=== PATIENT | female | born 1970 | race Two or more races ===

== ENCOUNTER 2016-12-18 13:09 | Emergency (ER) | payer OTHER ==
[2016-12-18] MEDS ORDERED: RX INFO: IV CONTRAST WAS GIVEN 1 EACH MISC MISCELLANE PRN (13:36)
[2016-12-18] MEDS ORDERED: KETOROLAC 30 MG/ML 1 ML VIAL IVP STA (13:37)
[2016-12-18] MEDS ORDERED: MORPHINE SULFATE 4 MG/ML SYRINGE IV ONE (13:37)
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
[2016-12-18 14:00] LABS: Basophils # (A) 0.1 k/uL (0-0.2); Basophils % (A) 1 %; CH 32.2; CHCM 33.5; Eosinophils # (A) 0.2 k/uL (0-0.7); Eosinophils % (A) 2 %; HCT 46.7 % (34.0-46.0); HDW 2.08; HGB 15.1 gm/dL (11.4-16.0); Luc # (Auto) 0.17; Luc % (Auto) 2; Lymphocytes # (A) 1.9 k/uL (1.0-4.8); Lymphocytes % (A) 24 %; MCH 31.1 pg (25.0-35.0); MCHC 32.3 g/dL (31.0-37.0); MCV 96.3 fL (80.0-100.0); Mean Platelet Volume 8.6; Monocytes # (A) 0.6 k/uL (0-1.0); Monocytes % (A) 7 %; Neutrophils # (A) 5.3 k/uL (1.3-7.7); Neutrophils % (A) 65 %; RBC 4.84 m/uL (3.80-5.40); RDW 13.8 % (11.5-15.5); WBC 8.3 k/uL (3.8-10.6); WBC (Perox) 8.03
[2016-12-18 14:11] LABS: Anion Gap 6 mmol/L; Blood Urea Nitrogen 10 mg/dL (7-17); Calcium 9.1 mg/dL (8.4-10.2); Carbon Dioxide 28 mmol/L (22-30); Chloride 105 mmol/L (98-107); Glucose 94 mg/dL (74-99); Non-African American GFR(MDRD) >60 (>60 ml/min/1.73 sqM); Potassium 3.9 mmol/L (3.5-5.1); Sodium 139 mmol/L (137-145)
--- NOTE | 2016-12-18 15:08 | CT ---
CT CHEST FOR PULMONARY EMBOLISM. EXAMINATION TYPE: CT chest angio for PE DATE OF EXAM: 12/18/2016 INDICATION: Patient complains of RUL chest pain. CT DLP: 526 mGycm, Automated exposure control for dose reduction was used. CONTRAST: Patient injected with 100 mL of Omnipaque 350. COMPARISON: NONE TECHNIQUE: CT of the chest is performed on a spiral scan at 2 mm thick sections. Study is performed with intravenous contrast timed for evaluation for pulmonary embolism. This will limit additional po rtions of the evaluation. 3-D MIP images reconstructed by the technologist are reviewed on the compu ter in the coronal and sagittal planes. FINDINGS: No persistent filling defects are evident to suggest an acute pulmonary embolism. No mediastinal or hilar adenopathy enlarged by CT criteria is evident. The ascending aorta diameter at the level of the main pulmonary artery is 3.1 cm. The main pulmonary artery diameter at the bifur cation is 2.5 cm. Some streak opacities in the posterior dependent lung bases likely on the basis of mild streak atelec tasis. Limited CT section through the upper abdomen are unremarkable. IMPRESSIONS: 1. No acute pulmonary embolism. 2. Mild streak atelectasis posterior dependent lung bases
[2016-12-18 16:16] VITALS: BP 162/90; PULSE 66; RESP 16; TEMP 98.3
== END 2016-12-18 16:14 | disposition home or self-care (01) ==
LOC: EC 13:09
DX: J98.11 Atelectasis (principal); R07.89 Other chest pain; J44.9 Chronic obstructive pulmonary disease, unspecified; S00.31XA Abrasion of nose, initial encounter; S60.511A Abrasion of right hand, initial encounter; F17.200 Nicotine dependence, unspecified, uncomplicated; Z79.899 Other long term (current) drug therapy; V18.9XXD Unspecified pedal cyclist injured in noncollision transport accident in traffic accident, subsequent encounter
CPT/HCPCS: 36415; 93005; 80048; 85025; 71275; 99285; 96374; 96375; J2270; Q9967; J1885

== ENCOUNTER 2019-04-25 09:17 | Observation (INO) | payer OTHER ==
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
[2019-04-25 10:05] LABS: Basophils % (A) 1 %; Eosinophils # (A) 0.2 k/uL (0-0.7); Eosinophils % (A) 3 %; HCT 45.9 % (34.0-46.0); HGB 15.2 gm/dL (11.4-16.0); Lymphocytes # (A) 1.5 k/uL (1.0-4.8); Lymphocytes % (A) 29 %; MCH 31.3 pg (25.0-35.0); MCHC 33.2 g/dL (31.0-37.0); Mean Platelet Volume 8.5; Monocytes # (A) 0.3 k/uL (0-1.0); Monocytes % (A) 5 %; Neutrophils % (A) 60 %; Platelet Count 179 k/uL (150-450); RBC 4.88 m/uL (3.80-5.40); RDW 12.6 % (11.5-15.5)
[2019-04-25 10:14] LABS: African American GFR (CKD) >90 (>60 ml/min/1.73 sqM); Anion Gap 12 mmol/L; Blood Urea Nitrogen 9 mg/dL (7-17); Calcium 9.3 mg/dL (8.4-10.2); Carbon Dioxide 23 mmol/L (22-30); Chloride 104 mmol/L (98-107); Glucose 112 mg/dL (74-99); INR 0.9 (<1.2); Non-African American GFR(CKD) >90 (>60 ml/min/1.73 sqM); Partial Thromboplastin Time 24.4 sec (22.0-30.0); Potassium 3.7 mmol/L (3.5-5.1); Prothrombin Time 9.8 sec (9.0-12.0); Sodium 139 mmol/L (137-145)
--- NOTE | 2019-04-25 10:29 | XR ---
EXAMINATION TYPE: XR chest 2V DATE OF EXAM: 04/25/2019 COMPARISON: None INDICATION: Cough short of breath chest pain TECHNIQUE: Frontal and lateral views of the chest are obtained. FINDINGS: The heart size is normal. The pulmonary vasculature is normal. The lungs are clear. Nipple shadows appear to be present bilaterally. IMPRESSION: 1. No acute pulmonary process.
[2019-04-25] MEDS ORDERED: ASPIRIN 81 MG PO STA (12:31)
[2019-04-25] MEDS ORDERED: NITROGLYCERIN SL TABS 0.4 MG TAB SUBLINGUAL PRN (12:32)
[2019-04-25] MEDS ORDERED: LABETALOL 5 MG/ML VIAL MDV IVP STA (14:17)
[2019-04-26 03:57] LABS: Cholesterol 203 mg/dL (<200); Triglycerides 183 mg/dL (<150)
[2019-04-26 04:04] LABS: LDL Cholesterol,Calculated 53 mg/dL (0-99)
[2019-04-26 04:07] LABS: HDL Cholesterol 113 mg/dL (40-60)
[2019-04-26 07:04] VITALS: RESP 18
[2019-04-26] MEDS ORDERED: ASPIRIN 325 MG TAB PO SCH (09:00)
[2019-04-26] MEDS ORDERED: amLODIPine 5 MG TAB PO SCH (10:15)
[2019-04-26 12:00] VITALS: BP 153/101; PULSE 85; TEMP 97.6
[2019-04-26] MEDS ORDERED: predniSONE 20 MG TAB PO STA (13:24)
--- NOTE | 2019-04-26 13:36 | ECHOF ---
Referral Reason: MEASUREMENTS -------- HEIGHT: 165.1 cm WEIGHT: 63.5 kg BP: IVSd: 1.2 cm (0.6 - 1.1) LVIDd: 4.3 cm (3.9 - 5.3) LVPWd: 1.5 cm (0.6 - 1.1) IVSs: 1.7 cm LVIDs: 2.8 cm LVPWs: 1.9 cm LAESV Index (A-L): 20.63 ml/m Ao Diam: 2.8 cm (2.0 - 3.7) AV Cusp: 2.0 cm (1.5 - 2.6) LA Diam: 2.6 cm (2.7 - 3.8) MV EXCURSION: 20.174 mm (> 18.000) MV EF SLOPE: 131 mm/s (70 - 150) EPSS: 1.5 cm MV E Alfredo: 0.66 m/s MV DecT: 183 ms MV A Alfredo: 0.65 m/s MV E/A Ratio: 1.02 AR PHT: 275 ms RAP: 5.00 mmHg RVSP: 22.48 mmHg FINDINGS -------- Sinus rhythm. This was a technically good study. The left ventricular size is normal. There is mild concentric left ventricular hypertrophy. Overa ll left ventricular systolic function is normal with, an EF between 55 - 60 %. The diastolic fillin g pattern is normal for the age of the patient 9.95. The right ventricle is normal in size. The left atrial size is normal. The right atrial size is normal. The aortic valve is trileaflet and appears structurally normal. The mitral valve is normal. There is trace mitral regurgitation. The tricuspid valve appears structurally normal. Trace tricuspid regurgitation present. Right last tricular systolic pressure is normal at < 35 mmHg. There is no pulmonic regurgitation present. The aortic root size is normal. Normal inferior vena cava with normal inspiratory collapse consistent with estimated right atrial pre ssure of 5 mmHg. There is no pericardial effusion. CONCLUSIONS -------- 1. Sinus rhythm. 2. This was a technically good study. 3. The left ventricular size is normal. 4. There is mild concentric left ventricular hypertrophy. 5. Overall left ventricular systolic function is normal with, an EF between 55 - 60 %. 6. The diastolic filling pattern is normal for the age of the patient 9.95 7. The right ventricle is normal in size. 8. The left atrial size is normal. 9. The right atrial size is normal. 10. The aortic valve is trileaflet and appears structurally normal. 11. The mitral valve is normal. 12. There is trace mitral regurgitation. 13. The tricuspid valve appears structurally normal. 14. Trace tricuspid regurgitation present. 15. Right ventricular systolic pressure is normal at < 35 mmHg. 16. There is no pulmonic regurgitation present. 17. The aortic root size is normal. 18. Normal inferior vena cava with normal inspiratory collapse consistent with estimated right atrial pressure of 5 mmHg. 19. There is no pericardial effusion. DIP FILLER: Awa Smith RDCS
[2019-04-26] MEDS ORDERED: AZITHROMYCIN 500 MG TAB PO SCH (14:00)
--- NOTE | 2019-04-26 15:30 | CONS ---
CONSULTATION CHIEF COMPLAINT: Chest pain. Irena is a 49-year-old lady with no significant past medical history who presented to hospital complaining of chest pain. Her chest discomfort is in the precordial area that radiates to her back. It is associated with cold and sinus infection. There is no clear-cut relationship to exertion. There is no diaphoresis and no shortness of breath. She came to the ER from where she is admitted to hospital. EKG does not reveal acute ischemic changes and 3 sets of cardiac enzymes have been negative. At the time of my evaluation, patient appears comfortable at rest and is eager to go home. PAST MEDICAL HISTORY: Negative for hypertension, diabetes, dyslipidemia. MEDICATIONS: She is on Chantix. ALLERGIES: No known drug allergies. FAMILY HISTORY: Negative for premature coronary artery disease. SOCIAL HISTORY: Significant for smoking, that she quit recently. REVIEW OF SYSTEMS: HEENT: Unremarkable. CARDIAC: As described above. RESPIRATORY: Negative. GI: Negative. GENITOURINARY: Negative. ALLERGY/IMMUNOLOGY: Negative. SKIN: Negative. MUSCULOSKELETAL: Negative. ENDOCRINE: Negative. HEMATOLOGICAL: Negative. DERM: Negative. CONSTITUTIONAL: Negative. ONCOLOGICAL: Negative. H[employer] INSPECTOR: Negative. Rest of the system review is not relevant. PHYSICAL EXAM: Comfortable at rest. Afebrile. Heart rate is 76 beats per minute. Blood pressure is 160/90, respiratory rate is 18, O2 saturation is 98% on room air. There is no jugular venous distention. Carotid upstroke is normal. There is no bruit. Chest exam reveals good air entry bilaterally. Heart exam reveals first and second heart sounds. No gallop. There is a systolic murmur at the left lower sternal border. Abdomen is soft. Exam of extremities did not reveal any edema. Peripheral pulses are palpable. EKG shows sinus rhythm, normal axis, normal intervals. Cardiac enzymes have been negative. Chest x-ray is unremarkable. ASSESSMENT: 1. Precordial chest pain. 2. History of smoking. PLAN: Patient's chest discomfort is sharp, atypical. Myocardial infarction is ruled out. I will obtain a 2D echo on her to assess her wall motion and LV function, assess the pericardium and the aortic root. If this workup is negative, she can be discharged home and undergo an outpatient stress test. MMODL / IJN: [id number] /
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
== END 2019-04-26 15:50 | disposition home or self-care (01) ==
LOC: EC 09:17 → 1SOBS 12:32
PROVIDERS: ADMIT Family Medicine; ATTEND Family Medicine
DX: R07.89 Other chest pain (principal); J20.9 Acute bronchitis, unspecified; R06.02 Shortness of breath; M19.90 Unspecified osteoarthritis, unspecified site; Z87.891 Personal history of nicotine dependence; Z87.81 Personal history of (healed) traumatic fracture; Z79.2 Long term (current) use of antibiotics; Z79.52 Long term (current) use of systemic steroids; Z79.899 Other long term (current) drug therapy; Z98.890 Other specified postprocedural states
CPT/HCPCS: 93005 ×2; 96374; 99285; 36415; 93306; 80061; 80048; 84484; 85025; 85610; 85730; 71046; G0378 ×2; J7512

== ENCOUNTER 2024-10-12 21:28 | Emergency (ER) | payer BC, OTHER ==
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
--- NOTE | 2024-10-12 22:02 | CT ---
EXAMINATION TYPE: CT brain cspine wo con DATE OF EXAM: 10/12/2024 9:51 PM COMPARISON: None. CLINICAL INDICATION: Female, 54 years old with history of Fall; fall down 4-5 steps, etoh, pt doesn't know if she hit her head TECHNIQUE: Brain: Multiple axial CT images of the brain were obtained without IV contrast. Cspine: Axial CT images from the skull base to the inferior aspect of T2 we obtained without intraven ous contrast. Coronal and sagittal reformatted images were also reviewed. . CT DLP: 1342.4 mGycm, Automated exposure control for dose reduction was used. FINDINGS: Brain: Extra-axial spaces: No abnormal extra-axial fluid collections. Ventricular system: Within normal limits Cerebral parenchyma: No acute intraparenchymal hemorrhage or mass effect. The beth-white junction is well differentiated. Cerebellum: Unremarkable. Mass effect: No evidence of midline shift. Intracranial vasculature: unremarkable Soft tissues: Normal. Calvarium/osseous structures: No depressed skull fracture. Paranasal sinuses and mastoid air cells: Moderate scattered paranasal sinus disease. Visualized orbits: Orbital contents are intact. Cervical spine: Fracture: None. Osseous structures: Multilevel degenerative disc disease changes with endplate spurring and disc oste ophyte complex's. Vertebral alignment: Within normal limits. Spinal canal/Neural Foramina: No evidence of high-grade spinal canal stenosis. Facet arthropathy and uncovertebral hypertrophy causes multilevel varying degrees of neural foraminal narrowing. Neck soft tissues: Prevertebral soft tissues are within normal limits. Other: The airway is patent. The lung apices are clear. IMPRESSION: 1. No acute intracranial process. 2. No acute fracture or traumatic subluxation of the cervical spine. [facility], , 10/12/2024 10:00 PM
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
[2024-10-13] MEDS: LIDOCAINE 4% PATCH TOPICAL ONE (00:06)
[2024-10-13] MEDS: KETOROLAC 15 MG/ML 1 ML VIAL IVP STA ×2 (00:08→01:48)
[2024-10-13] MEDS: HYDROmorphone 1 MG/ML 1 ML SYRINGE IVP STA (00:09)
[2024-10-13] MEDS: HYDROmorphone 0.5 MG/0.5 ML SYRINGE IVP STA (01:47)
[2024-10-13] MEDS: ACET/COD 300 MG/30 MG STARTER PACK 6 TAB BTL PO STA (01:48)
[2024-10-13 02:03] VITALS: BP 149/90; PULSE 86; RESP 16; TEMP 98.1
== END 2024-10-13 01:53 | disposition home or self-care (01) ==
LOC: EC 21:28
DX: S32.018A Other fracture of first lumbar vertebra, initial encounter for closed fracture (principal); Z87.891 Personal history of nicotine dependence; W10.9XXA Fall (on) (from) unspecified stairs and steps, initial encounter
CPT/HCPCS: 70450; 72125; 72131; 96374; 96375; 96376; 99284